=== PATIENT | male | born 1990 | race Caucasian/White ===

== ENCOUNTER 2016-06-20 23:16 | Emergency (ER) | payer OTHER ==
[~2016-06-20] VITALS: Ht 162.6 cm; Wt 72.6 kg
[2016-06-20 23:21] VITALS: BP 130/91
--- NOTE | 2016-06-20 23:24 | ED NECK/BACK PAIN COMPLAINT ---
History of Present Illness General Chief Complaint: Neck/Upper Back Pain/Injury Stated Complaint: "PER PT I HURT MT NECK" Source: patient, friend Exam Limitations: intoxication Vital Signs & Intake/Output Vital Signs & Intake/Output Vital Signs Date Time Temp Pulse Resp B/P Pulse O2 O2 Flow FiO2 Ox Delivery Rate 06/20 2330 100 Room Air 06/20 2321 97.9 73 20 130/91 98 Room Air ED Intake and Output 06/21 0000 06/20 1200 Intake Total Output Total Balance Patient 160 lb Weight Allergies Coded Allergies: shellfish derived (Severe, THROAT SWELLING 06/20/16) venom-honey bee (Severe, ANAPHALACTIC 06/20/16) latex (Intermediate, HIVES 06/20/16) Reconcile Medications Cyclobenzaprine HCl 10 MG TABLET 1 TAB PO TID PRN SPASM Ibuprofen 800 MG TABLET 1 TAB PO TID PRN PAIN Triage Note: TRIAGE: PT TO ER C/C PAIN TO BACK, NECK AND RT ARM S/P INJURY ON TRAMPOLINE THIS AFTERNOON. STATES LANDED ON HIS NECK. TOOK ADVIL WITH NO RELIEF. +C SPINE TENDERNESS AT TRIAGE, COLLAR APPLIED. REMOVED NECKLACE BUT STATES EARRINGS ARE ENTIRELY PLASTIC AND KEPT THEM IN PLACE. Triage Nurses Notes Reviewed? yes Onset: Abrupt Duration: hour(s): (12) Timing: multiple episodes today Quality/Severity: moderate Location: C-spine Radiation: right shoulder Method of Injury: fall Modifying Factors: movement HPI: 25 year old male who presents with friends to the ER with chief complaint of neck pain after falling while trampolining at 11 am. Patient states he landed on the side of his neck. No direct head injury or loss of consciousness. He states that he took some tylenol earlier with minimal relief. No blurred vision. No weakness, numbness or tingling of his extremities. Past History Travel History Traveled to [place] past 21 day No Medical History Any Pertinent Medical History? 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 No Review of Systems Review of Systems Constitutional: Denies: chills, fever. Eyes: Denies: blurred vision. Ears, Nose, Throat, Mouth: Reports: no symptoms. Respiratory: Denies: cough, short of breath. Cardiovascular: Denies: chest pain. Gastrointestinal/Abdominal: Reports: no symptoms. Musculoskeletal: Reports: muscle pain, muscle stiffness, neck pain. Skin: Reports: no symptoms. Neurological/Psychological: Reports: headache. Denies: numbness, tingling, weakness. All Other Systems: Reviewed and Negative Physical Exam Physical Exam General Appearance: well developed/nourished, alert, anxious, mild distress Head: atraumatic Eyes: Bilateral: PERRL, EOMI. 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 Discussed w/RAD: Radiology Read. Radiology Impression: PATIENT: PEGGY THOMPSON PRESENT AGE: 25 PATIENT ACCOUNT NO: [id number] : 88 LOCATION: [facility] ORDERING PHYSICIAN: KEVON ANGLIN MD SERVICE DATE: 06/20/16 EXAM TYPE: RAD - XRY -CERVICAL SPINE TRAUMA EXAMINATION: CERVICAL SPINE 3 VIEWS CLINICAL INFORMATION: Neck pain following injury. COMPARISON: None. TECHNIQUE: AP, lateral and odontoid views of the cervical spine were obtained. FINDINGS: The cervical vertebrae are in normal alignment. Disc heights and vertebral body heights are well-preserved. There are no fractures. There is no prevertebral soft tissue swelling. On the odontoid view, the atlas sits well upon the axis. IMPRESSION: Unremarkable cervical spine series. 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 < Electronically signed in Other Vendor System> SIGNED BY: ISAMAR SINGLETON MD 06/21/162 Departure Departure Time of Disposition: 23 Disposition: HOME OR SELF CARE Condition: Stable Clinical Impression Primary Impression: Acute cervical sprain Referrals: PATIENT HAS NO PRIMARY CARE DR (PCP/Family) Additional Instructions: TAKE THE IBUPROFEN AND FLEXERIL DIRECTED. YOUR XRAY WAS NEGATIVE FOR FRACTURE. RETURN TO THE ER FOR ANY CHANGING OR WORSENING SYMPTOMS. Departure Forms: Customer Survey General Discharge Information Prescriptions: Current Visit Scripts Ibuprofen 1 TAB PO TID PRN PAIN #30 TAB Cyclobenzaprine HCl 1 TAB PO TID PRN SPASM #20 TAB
--- NOTE | 2016-06-21 00:22 | RADIOLOGY REPORT ---
EXAMINATION: CERVICAL SPINE 3 VIEWS CLINICAL INFORMATION: Neck pain following injury. COMPARISON: None. TECHNIQUE: AP, lateral and odontoid views of the cervical spine were obtained. FINDINGS: The cervical vertebrae are in normal alignment. Disc heights and vertebral body heights are well-preserved. There are no fractures. There is no prevertebral soft tissue swelling. On the odontoid view, the atlas sits well upon the axis. IMPRESSION: Unremarkable cervical spine series.
[2016-06-21] MEDS ORDERED: IBUPROFEN800 M1 PO (00:25)
[2016-06-21] MEDS ORDERED: CYCLOBENZAPRINE10 M1 PO (00:25)
== END 2016-06-21 00:38 ==
LOC: ERH 23:16
DX: S13.4XXA Sprain of ligaments of cervical spine, initial encounter (principal); X58.XXXA Exposure to other specified factors, initial encounter; Y93.44 Activity, trampolining
CPT/HCPCS: 72050; 96372; J1885